=== PATIENT | male | born 1970 | race Asian ===

== ENCOUNTER 2019-03-21 18:30 | Inpatient (IN) | payer OTHER, BC ==
[~2019-03-21] VITALS: Ht 160 cm; Wt 63.5 kg
[2019-03-21 18:37] VITALS: BP_SYST 146
[2019-03-21] MEDS ORDERED: NS 500 ML IV ONE (19:15)
[2019-03-21] MEDS ORDERED: NACL 0.9% 1,000 ML IV ONE ×2 (19:15→21:53)
[2019-03-21] MEDS ORDERED: VANCOMYCIN HCL 1,000 MG in NS 250 ML IV ONE (19:15)
[2019-03-21] MEDS ORDERED: NS 250 ML IV ONE (19:15)
[2019-03-21] MEDS ORDERED: CEFEPIME 2 GM in D5W 100 ML IV ONE (19:15)
[2019-03-21] MEDS ORDERED: LORazepam 2 MG/ML VIAL IVP ONE (19:30)
[2019-03-21] MEDS: MIDAZOLAM HCL 5 MG/5 ML VIAL IM ONE ×2 (19:30→19:35)
[2019-03-21 20:35] LABS: HEMOGLOBIN 13.7 g/dL (14.0-18.0); MEAN CORPUSCULAR HEMOGLOBIN 33 pg (27-31); MEAN CORPUSCULAR HGB CONC 33 % (32-36); MEAN CORPUSCULAR VOLUME 102 fL (79.0-98.0); PLATELET COUNT (AUTO) 115 K/uL (130-430); RED BLOOD CELL COUNT(AUTO) 4.14 MIL/uL (4.2-6.2); RED CELL DISTRIBUTION WIDTH 12.5 % (9.0-15.0); WHITE BLOOD COUNT (AUTO) 11.9 K/uL (4.8-10.8)
[2019-03-21 20:45] LABS: CALCIUM 8.7 mg/dL (8.4-11.0); CREATININE 0.88 mg/dL (0.55-1.30); POTASSIUM 4.1 mmol/L (3.5-5.1)
[2019-03-21 20:51] LABS: ALBUMIN 3.1 g/dL (3.4-4.8); TOTAL BILIRUBIN 0.7 mg/dL (0.0-1.0)
[2019-03-21 21:30] LABS: INR 1.1 (0.80-1.20); PROTHROMBIN TIME 10.6 SECS (9.5-12.5)
[2019-03-21 21:38] LABS: BAND % (MANUAL) 42 % (0-6); LYMPHOCYTES % (MANUAL) 8 % (20-46); MONOCYTES % (MANUAL) 12 % (0-11)
[2019-03-21 21:39] LABS: BASOPHILS % (MANUAL) 0 % (0-2); EOSINOPHILS % (MANUAL) 0 % (0-7)
[2019-03-21 22:25] LABS: BILIRUBIN,URINE NEGATIVE (NEGATIVE); BLOOD, URINE NEGATIVE (NEGATIVE); CLARITY/URINE CLEAR (CLEAR); COLOR,URINE YELLOW (YELLOW); GLUCOSE,URINE NEGATIVE (NEGATIVE); KETONES,URINE TRACE (NEGATIVE); LEUKOCYTE ESTERASE ,URINE NEGATIVE (NEGATIVE); NITRITE, URINE NEGATIVE (NEGATIVE); PH,URINE 7.5 (5.0-8.0); PROTEIN URINE NEGATIVE (NEGATIVE); UROBILINOGEN,URINE 0.2 (0.2-1.0)
[2019-03-21] MEDS ORDERED: cefOXitin SODIUM 2 GM/VIAL (MEFOXIN) ONE (22:35)
[2019-03-21] MEDS ORDERED: VANCOMYCIN HCL 1000 MG/VIAL IV ONE (22:38)
[2019-03-21] MEDS ORDERED: CEFEPIME 1 GM/VIAL (MAXIPIME) ONE (22:44)
[2019-03-21] MEDS ORDERED: ACET325T53 GT (23:19)
[2019-03-21] MEDS ORDERED: BISA-79 PO (23:19)
[2019-03-21] MEDS ORDERED: FLEETMO RC (23:19)
[2019-03-21] MEDS ORDERED: ACET-2634 GT (23:19)
[2019-03-21] MEDS ORDERED: BISA5TAB10 PR (23:19)
[2019-03-21] MEDS ORDERED: CHLO237L3 TP (23:19)
[2019-03-21] MEDS ORDERED: VALP250S3 GT (23:19)
[2019-03-21] MEDS ORDERED: MOM PO (23:19)
[2019-03-21] MEDS ORDERED: SENN8.6T19 GT (23:19)
[2019-03-21] MEDS ORDERED: LEVE250T2 GT (23:19)
[2019-03-21] MEDS ORDERED: ALBU2.5V7 INH (23:19)
[2019-03-21] MEDS ORDERED: PEDI1TAB28 GT (23:19)
[2019-03-21] MEDS ORDERED: BEN50 GT (23:19)
[2019-03-21] MEDS ORDERED: ASCO500T20 GT (23:19)
[2019-03-21] MEDS ORDERED: ACETAMINOPHEN 650 MG SUPP.RECT RC ONE ×2 (23:45→23:53)
[2019-03-22 00:30] VITALS: BP_SYST 111
[2019-03-22 06:37] VITALS: BP_SYST 111
[2019-03-22 07:59] VITALS: BP_SYST 133
[2019-03-22] MEDS: cefTRIAXone 1 GM in D5W 50 ML IV SCH (08:46)
[2019-03-22] MEDS ORDERED: IPRATROPIUM/ALBUTEROL SULFATE 3 ML AMPUL.NEB (DUONEB) INH ONE (09:30)
[2019-03-22] MEDS ORDERED: ACETAMINOPHEN 325 MG TABLET PO PRN (09:30)
[2019-03-22] MEDS ORDERED: LevETIRAcetam 500 MG/5 ML UDC ORAL LIQUID GT ONE (09:45)
[2019-03-22 09:52] LABS: BASOPHILS % (AUTO) 0.1 % (0.0-2.0); HEMATOCRIT 35.8 % (36-54); HEMOGLOBIN 11.9 g/dL (14.0-18.0); LYMPHOCYTES # (AUTO) 0.6 K/uL (1.0-5.5); LYMPHOCYTES % (AUTO) 6.4 % (20.5-51.5); MEAN CORPUSCULAR HEMOGLOBIN 34 pg (27-31); MEAN CORPUSCULAR HGB CONC 33 % (32-36); MEAN CORPUSCULAR VOLUME 101 fL (79.0-98.0); MONOCYTES # (AUTO) 1.1 K/uL (0.0-1.0); MONOCYTES % (AUTO) 12.1 % (1.7-9.3); NEUTROPHILS # (AUTO) 7.5 K/uL (1.8-7.7); PLATELET COUNT (AUTO) 93 K/uL (130-430); RED BLOOD CELL COUNT(AUTO) 3.54 MIL/uL (4.2-6.2); RED CELL DISTRIBUTION WIDTH 12.6 % (9.0-15.0); WHITE BLOOD COUNT (AUTO) 9.2 K/uL (4.8-10.8)
[2019-03-22 10:01] LABS: CALCIUM 7.9 mg/dL (8.4-11.0); CREATININE 0.71 mg/dL (0.55-1.30); NEUTROPHILS % (AUTO) 81.4 % (40.0-70.0); POTASSIUM 3.7 mmol/L (3.5-5.1)
[2019-03-22] MEDS: AZITHROMYCIN 500 MG in NS 250 ML IV SCH (10:32)
[2019-03-22] MEDS: ACETAMINOPHEN 325 MG TABLET GT PRN ×2 (10:33→22:53)
[2019-03-22] MEDS: NORMAL SALINE 5 ML DISP.SYRIN IVF SCH ×3 (10:45→22:41)
[2019-03-22 11:08] VITALS: BP_SYST 113
[2019-03-22] MEDS ORDERED: NACL 0.9% 1,000 ML IV SCH (14:15)
[2019-03-22] MEDS: IPRATROPIUM/ALBUTEROL SULFATE 3 ML AMPUL.NEB (DUONEB) INH SCH ×3 (15:00→23:00)
[2019-03-22 15:15] VITALS: BP_SYST 99
[2019-03-22] MEDS: VANCOMYCIN HCL 750 MG in NS 250 ML IV SCH ×2 (15:47→22:43)
[2019-03-22] MEDS: LevETIRAcetam 500 MG/5 ML UDC ORAL LIQUID GT SCH ×2 (15:48→22:41)
[2019-03-22 20:00] VITALS: BP_SYST 119
[2019-03-22] MEDS: ONDANSETRON HCL 4 MG/2 ML VIAL IVP PRN (22:43)
[2019-03-23 00:23] VITALS: BP_SYST 156
[2019-03-23] MEDS: ACETAMINOPHEN 650 MG/20.3 ML UDC GT PRN ×2 (03:52→22:27)
[2019-03-23] MEDS: IPRATROPIUM/ALBUTEROL SULFATE 3 ML AMPUL.NEB (DUONEB) INH SCH ×6 (04:07→23:17)
[2019-03-23] MEDS: NORMAL SALINE 5 ML DISP.SYRIN IVF SCH ×3 (06:11→21:53)
[2019-03-23] MEDS: LevETIRAcetam 500 MG/5 ML UDC ORAL LIQUID GT SCH ×2 (06:11→22:22)
[2019-03-23] MEDS: VANCOMYCIN HCL 750 MG in NS 250 ML IV SCH (06:13)
[2019-03-23 07:55] VITALS: BP_SYST 98
[2019-03-23 08:08] LABS: BASOPHILS % (AUTO) 0.3 % (0.0-2.0); HEMATOCRIT 31.1 % (36-54); HEMOGLOBIN 10.3 g/dL (14.0-18.0); LYMPHOCYTES # (AUTO) 1.1 K/uL (1.0-5.5); MEAN CORPUSCULAR HEMOGLOBIN 34 pg (27-31); MEAN CORPUSCULAR HGB CONC 33 % (32-36); MEAN CORPUSCULAR VOLUME 101 fL (79.0-98.0); MONOCYTES # (AUTO) 1.3 K/uL (0.0-1.0); MONOCYTES % (AUTO) 12.5 % (1.7-9.3); NEUTROPHILS # (AUTO) 7.9 K/uL (1.8-7.7); NEUTROPHILS % (AUTO) 76.2 % (40.0-70.0); RED BLOOD CELL COUNT(AUTO) 3.07 MIL/uL (4.2-6.2); RED CELL DISTRIBUTION WIDTH 12.4 % (9.0-15.0); WHITE BLOOD COUNT (AUTO) 10.4 K/uL (4.8-10.8)
[2019-03-23 08:15] LABS: ALBUMIN 2.4 g/dL (3.4-4.8); CALCIUM 7.6 mg/dL (8.4-11.0); CREATININE 0.72 mg/dL (0.55-1.30); POTASSIUM 3.8 mmol/L (3.5-5.1); TOTAL BILIRUBIN 0.5 mg/dL (0.0-1.0)
[2019-03-23 08:35] LABS: PLATELET COUNT (AUTO) 86 K/uL (130-430)
[2019-03-23] MEDS: cefTRIAXone 1 GM in D5W 50 ML IV SCH (09:10)
[2019-03-23] MEDS: AZITHROMYCIN 500 MG in NS 250 ML IV SCH (09:12)
[2019-03-23] MEDS: ONDANSETRON HCL 4 MG/2 ML VIAL IVP PRN (11:04)
[2019-03-23] MEDS: 0.45% NACL 1,000 ML IV SCH (12:05)
[2019-03-23 12:24] VITALS: BP_SYST 114
[2019-03-23] MEDS ORDERED: COMMUNICATION ORDER XX ONE (15:00)
[2019-03-23 16:40] VITALS: BP_SYST 118
[2019-03-23] MEDS: VANCOMYCIN HCL 1 GM/NS PREMIX 250 ML IV SCH (17:46)
[2019-03-23 20:00] VITALS: BP_SYST 110
[2019-03-23] MEDS: metroNIDAZOLE 500 mg/NS 100 ML IV SCH (21:52)
[2019-03-24] VITALS: BP_SYST 116
[2019-03-24] MEDS: VANCOMYCIN HCL 1 GM/NS PREMIX 250 ML IV SCH ×2 (00:50→08:07)
[2019-03-24] MEDS: ONDANSETRON HCL 4 MG/2 ML VIAL IVP PRN (00:50)
[2019-03-24] MEDS: IPRATROPIUM/ALBUTEROL SULFATE 3 ML AMPUL.NEB (DUONEB) INH SCH ×6 (03:37→22:41)
[2019-03-24] MEDS: NORMAL SALINE 5 ML DISP.SYRIN IVF SCH ×3 (06:11→22:05)
[2019-03-24] MEDS: LevETIRAcetam 500 MG/5 ML UDC ORAL LIQUID GT SCH ×3 (06:11→22:23)
[2019-03-24 07:04] LABS: BASOPHILS % (AUTO) 0.4 % (0.0-2.0); EOSINOPHILS % (AUTO) 0.1 % (0.0-4.0); HEMATOCRIT 34.4 % (36-54); HEMOGLOBIN 11.4 g/dL (14.0-18.0); LYMPHOCYTES # (AUTO) 0.7 K/uL (1.0-5.5); LYMPHOCYTES % (AUTO) 13.2 % (20.5-51.5); MEAN CORPUSCULAR HEMOGLOBIN 33 pg (27-31); MEAN CORPUSCULAR HGB CONC 33 % (32-36); MEAN CORPUSCULAR VOLUME 101 fL (79.0-98.0); MONOCYTES # (AUTO) 0.8 K/uL (0.0-1.0); MONOCYTES % (AUTO) 14.7 % (1.7-9.3); NEUTROPHILS # (AUTO) 3.8 K/uL (1.8-7.7); NEUTROPHILS % (AUTO) 71.6 % (40.0-70.0); PLATELET COUNT (AUTO) 93 K/uL (130-430); RED BLOOD CELL COUNT(AUTO) 3.41 MIL/uL (4.2-6.2); WHITE BLOOD COUNT (AUTO) 5.3 K/uL (4.8-10.8)
[2019-03-24 08:00] VITALS: BP_SYST 135
[2019-03-24] MEDS: cefTRIAXone 1 GM in D5W 50 ML IV SCH (08:06)
[2019-03-24] MEDS: metroNIDAZOLE 500 mg/NS 100 ML IV SCH ×2 (08:07→21:49)
[2019-03-24 08:35] LABS: CALCIUM 7.6 mg/dL (8.4-11.0); CREATININE 0.56 mg/dL (0.55-1.30); POTASSIUM 3.6 mmol/L (3.5-5.1)
[2019-03-24] MEDS: 0.45% NACL 1,000 ML IV SCH ×2 (10:45→14:22)
[2019-03-24 11:35] VITALS: BP_SYST 129
[2019-03-24 15:03] VITALS: BP_SYST 149
[2019-03-24 20:00] VITALS: BP_SYST 111
[2019-03-24] MEDS ORDERED: levETIRAcetam 500 MG TABLET ONE (22:35)
[2019-03-24] MEDS: ACETAMINOPHEN 650 MG/20.3 ML UDC GT PRN (23:24)
[2019-03-25 00:29] VITALS: BP_SYST 115
[2019-03-25] MEDS ORDERED: LORazepam 2 MG/ML VIAL IVP PRN (00:50)
[2019-03-25] MEDS: IPRATROPIUM/ALBUTEROL SULFATE 3 ML AMPUL.NEB (DUONEB) INH SCH ×5 (02:55→19:18)
[2019-03-25] MEDS: NORMAL SALINE 5 ML DISP.SYRIN IVF SCH ×2 (06:11→14:50)
[2019-03-25 06:54] LABS: BASOPHILS % (AUTO) 0.8 % (0.0-2.0); EOSINOPHILS % (AUTO) 0.6 % (0.0-4.0); HEMATOCRIT 29.9 % (36-54); LYMPHOCYTES # (AUTO) 0.7 K/uL (1.0-5.5); MEAN CORPUSCULAR HEMOGLOBIN 34 pg (27-31); MEAN CORPUSCULAR HGB CONC 34 % (32-36); MEAN CORPUSCULAR VOLUME 100 fL (79.0-98.0); MONOCYTES # (AUTO) 0.7 K/uL (0.0-1.0); MONOCYTES % (AUTO) 22.1 % (1.7-9.3); NEUTROPHILS # (AUTO) 1.8 K/uL (1.8-7.7); NEUTROPHILS % (AUTO) 54.5 % (40.0-70.0); RED BLOOD CELL COUNT(AUTO) 2.98 MIL/uL (4.2-6.2)
[2019-03-25] MEDS: LevETIRAcetam 500 MG/5 ML UDC ORAL LIQUID GT SCH ×2 (07:31→14:50)
[2019-03-25 07:45] LABS: ALBUMIN 2.3 g/dL (3.4-4.8); CALCIUM 7.7 mg/dL (8.4-11.0); CREATININE 0.53 mg/dL (0.55-1.30); POTASSIUM 3.3 mmol/L (3.5-5.1); TOTAL BILIRUBIN 0.4 mg/dL (0.0-1.0)
[2019-03-25 08:00] VITALS: BP_SYST 133
[2019-03-25] MEDS: cefTRIAXone 1 GM in D5W 50 ML IV SCH (08:04)
[2019-03-25] MEDS: metroNIDAZOLE 500 mg/NS 100 ML IV SCH (08:04)
[2019-03-25 08:18] LABS: WHITE BLOOD COUNT (AUTO) 3.3 K/uL (4.8-10.8)
[2019-03-25] MEDS ORDERED: POTASSIUM CHLORIDE 20 MEQ/PKT PACKET GT ONE (09:45)
[2019-03-25] MEDS ORDERED: D5W 1,000 ML IV PRN (09:51)
[2019-03-25] MEDS ORDERED: DEXTROSE 50% JECT 50 ML DISP.SYRIN IVP PRN (10:00)
[2019-03-25] MEDS ORDERED: INSULIN REGULAR, HUMAN 100 UNITS/ML, 10 ML VIAL (humuLIN R) SUBCUT PRN (10:00)
[2019-03-25 11:19] VITALS: BP_SYST 127
[2019-03-25 12:35] LABS: PLATELET COUNT (AUTO) 95 K/uL (130-430)
[2019-03-25] MEDS ORDERED: ROCPM1 IV (14:42)
[2019-03-25] MEDS ORDERED: METR500T GT (14:43)
[2019-03-25] MEDS: 0.45% NACL 1,000 ML IV SCH (14:51)
[2019-03-25 15:02] VITALS: BP_SYST 133
== END 2019-03-25 21:17 | DRG 871 ==
LOC: SED 18:30 → STU 23:42
PROVIDERS: ADMIT Internal Medicine; ATTEND Internal Medicine
PROC: 06HY33Z Insertion of Infusion Device into Lower Vein, Percutaneous Approach (ICD-10-PCS; principal; 2019-03-21)
PROC: B54BZZA Ultrasonography of Right Lower Extremity Veins, Guidance (ICD-10-PCS; 2019-03-21)
DX: A41.9 Sepsis, unspecified organism (principal); J69.0 Pneumonitis due to inhalation of food and vomit; J96.10 Chronic respiratory failure, unspecified whether with hypoxia or hypercapnia; E87.2 Acidosis; G93.1 Anoxic brain damage, not elsewhere classified; L03.116 Cellulitis of left lower limb; K56.7 Ileus, unspecified; E11.9 Type 2 diabetes mellitus without complications; G40.909 Epilepsy, unspecified, not intractable, without status epilepticus; I10 Essential (primary) hypertension; I25.10 Atherosclerotic heart disease of native coronary artery without angina pectoris; J44.9 Chronic obstructive pulmonary disease, unspecified; R13.10 Dysphagia, unspecified; Z66 Do not resuscitate; R65.20 Severe sepsis without septic shock; Z93.1 Gastrostomy status; Z93.0 Tracheostomy status; Z79.899 Other long term (current) drug therapy
CPT/HCPCS: 36415; 36600; 71045; 73560-TC; 80048; 80053; 80164-TC; 80202-TC; 81003; 82803-TC; 82962; 83605; 84484; 85007; 85025; 85027; 85610-TC; 85730-TC; 87040-TC; 87070-TC; 87081; 87086; 87186-TC; 87205-TC; 93005; 94640; 94760; 96365; 96366; 96368; 99285; G0378; J0456; J0692; J0694; J0696; J1815; J2060; J2250; J2405; J3370; J3490; J7030; J7050; J7060; J7620

== ENCOUNTER 2019-09-28 21:41 | Inpatient (IN) | payer OTHER, BC, SELFPAY ==
[~2019-09-28] VITALS: Ht 167.6 cm; Wt 72.6 kg
[~2019-09-28 21:41] MED LIST: ACET-2634 GT; ACET325T53 GT; ALBU2.5V7 INH; ASCO500T20 GT; BEN50 GT; BISA-79 PO; BISA5TAB10 PR; CHLO237L3 TP; FLEETMO RC; LEVE250T2 GT; METR500T GT; MOM PO; PEDI1TAB28 GT; ROCPM1 IV; SENN8.6T19 GT; VALP250S3 GT
[2019-09-28 21:50] VITALS: BP_SYST 110
[2019-09-28] MEDS ORDERED: ACETAMINOPHEN 650 MG SUPP.RECT RC ONE (22:30)
[2019-09-28] MEDS ORDERED: NACL 0.9% 1,000 ML IV ONE (22:30)
[2019-09-28 22:46] LABS: BILIRUBIN,URINE NEGATIVE (NEGATIVE); BLOOD, URINE NEGATIVE (NEGATIVE); COLOR,URINE YELLOW (YELLOW); GLUCOSE,URINE NEGATIVE (NEGATIVE); KETONES,URINE NEGATIVE (NEGATIVE); LEUKOCYTE ESTERASE ,URINE NEGATIVE (NEGATIVE); NITRITE, URINE NEGATIVE (NEGATIVE); PROTEIN URINE NEGATIVE (NEGATIVE)
[2019-09-28 22:50] LABS: CLARITY/URINE CLOUDY (CLEAR)
[2019-09-28 23:00] LABS: BASOPHILS % (AUTO) 0.4 % (0.0-2.0); EOSINOPHILS # (AUTO) 0.1 K/uL (0.0-0.4); EOSINOPHILS % (AUTO) 1.9 % (0.0-4.0); HEMATOCRIT 38.5 % (36-54); LYMPHOCYTES # (AUTO) 1.6 K/uL (1.0-5.5); LYMPHOCYTES % (AUTO) 25.7 % (20.5-51.5); MEAN CORPUSCULAR HEMOGLOBIN 33 pg (27-31); MEAN CORPUSCULAR HGB CONC 34 % (32-36); MEAN CORPUSCULAR VOLUME 96 fL (79.0-98.0); MONOCYTES % (AUTO) 16.3 % (1.7-9.3); NEUTROPHILS # (AUTO) 3.5 K/uL (1.8-7.7); NEUTROPHILS % (AUTO) 55.7 % (40.0-70.0); PLATELET COUNT (AUTO) 146 K/uL (130-430); RED CELL DISTRIBUTION WIDTH 13.2 % (9.0-15.0); WHITE BLOOD COUNT (AUTO) 6.3 K/uL (4.8-10.8)
[2019-09-28 23:11] LABS: CALCIUM 8.4 mg/dL (8.4-11.0); CREATININE 0.5 mg/dL (0.55-1.30); POTASSIUM 3.5 mmol/L (3.5-5.1)
[2019-09-28 23:21] LABS: ALBUMIN 2.7 g/dL (3.4-4.8); TOTAL BILIRUBIN 0.4 mg/dL (0.0-1.0)
[2019-09-28] MEDS ORDERED: AZITHROMYCIN 500 MG in NS 250 ML IV ONE (23:45)
[2019-09-28] MEDS ORDERED: cefTRIAXone 1 GM IVPB PREMIX 50 ML IV ONE (23:45)
[2019-09-29] MEDS: D5/0.45 NS 1,000 ML IV SCH ×2 (01:00→20:15)
[2019-09-29 01:19] VITALS: BP_SYST 126
[2019-09-29 01:24] VITALS: BP_SYST 126
[2019-09-29] MEDS ORDERED: cefTRIAXone 1 GM IVPB PREMIX 50 ML IV ONE (01:43)
[2019-09-29] MEDS ORDERED: AZITHROMYCIN 500 MG/VIAL (ZITHROMAX) IV ONE (01:43)
[2019-09-29 08:00] VITALS: BP_SYST 141
[2019-09-29] MEDS ORDERED: IPRATROPIUM/ALBUTEROL SULFATE 3 ML AMPUL.NEB (DUONEB) INH PRN (08:45)
[2019-09-29] MEDS: IPRATROPIUM/ALBUTEROL SULFATE 3 ML AMPUL.NEB (DUONEB) INH SCH ×3 (08:45→19:31)
[2019-09-29] MEDS: HEPARIN SODIUM,PORCINE 5000 UNITS/ML VIAL SUBCUT SCH ×2 (09:00→21:00)
[2019-09-29] MEDS ORDERED: BISACODYL 5 MG TABLET.DR (DULCOLAX) GT SCH (09:30)
[2019-09-29] MEDS ORDERED: MILK OF MAGNESIA 30 ML UDC PO PRN (09:30)
[2019-09-29] MEDS ORDERED: HIBICLENS TP PRN (09:30)
[2019-09-29] MEDS ORDERED: MINERAL OIL 133 ML ENEMA RC PRN (09:30)
[2019-09-29] MEDS: VALPROIC ACID ORAL SYRUP 250 MG/5 ML UDC GT SCH (09:30)
[2019-09-29] MEDS ORDERED: SENNOSIDES 8.6 MG TABLET GT PRN (09:30)
[2019-09-29] MEDS ORDERED: ASCORBIC ACID 500 MG TABLET GT ONE (11:00)
[2019-09-29] MEDS ORDERED: levETIRAcetam 500 MG TABLET GT ONE (11:15)
[2019-09-29] MEDS ORDERED: VALPROIC ACID ORAL SYRUP 250 MG/5 ML UDC GT ONE (11:15)
[2019-09-29] MEDS ORDERED: BISACODYL 5 MG TABLET.DR (DULCOLAX) PO ONE (11:59)
[2019-09-29 12:00] VITALS: BP_SYST 111
[2019-09-29] MEDS ORDERED: DIPHENHYDRAMINE HCL 12.5 MG/5 ML UDC PO PRN (12:45)
[2019-09-29] MEDS: levETIRAcetam 500 MG TABLET GT SCH ×2 (14:00→22:00)
[2019-09-29] MEDS ORDERED: ACETAMINOPHEN 325 MG TABLET PO PRN (14:30)
[2019-09-29 16:00] VITALS: BP_SYST 130
[2019-09-29] MEDS: PANTOPRAZOLE SODIUM 40 MG/VIAL (PROTONIX) IVP SCH (19:15)
[2019-09-29] MEDS ORDERED: MENTHOL/ZINC OXIDE 113 GM OINT. TP PRN (19:30)
[2019-09-29 20:00] VITALS: BP_SYST 132
[2019-09-29] MEDS: cefTRIAXone 1 GM IVPB PREMIX 50 ML IV SCH (21:00)
[2019-09-29] MEDS: AZITHROMYCIN 500 MG in NS 250 ML IV SCH (21:00)
[2019-09-29] MEDS: NYSTATIN 15 GM TOPICAL POWDER TP SCH (21:30)
[2019-09-30] VITALS: BP_SYST 129
[2019-09-30] MEDS: IPRATROPIUM/ALBUTEROL SULFATE 3 ML AMPUL.NEB (DUONEB) INH SCH ×4 (00:37→19:00)
[2019-09-30] MEDS ORDERED: ACETAMINOPHEN 650 MG/20.3 ML UDC GT PRN (01:00)
[2019-09-30] MEDS: levETIRAcetam 500 MG TABLET GT SCH ×3 (06:00→22:15)
[2019-09-30] MEDS: cefTRIAXone 1 GM IVPB PREMIX 50 ML IV SCH (07:47)
[2019-09-30 07:52] VITALS: BP_SYST 154
[2019-09-30 08:25] LABS: BASOPHILS % (AUTO) 0.7 % (0.0-2.0); EOSINOPHILS # (AUTO) 0.2 K/uL (0.0-0.4); EOSINOPHILS % (AUTO) 3.6 % (0.0-4.0); HEMATOCRIT 37.5 % (36-54); HEMOGLOBIN 12.5 g/dL (14.0-18.0); LYMPHOCYTES # (AUTO) 1.3 K/uL (1.0-5.5); LYMPHOCYTES % (AUTO) 27.7 % (20.5-51.5); MEAN CORPUSCULAR HEMOGLOBIN 32 pg (27-31); MEAN CORPUSCULAR HGB CONC 33 % (32-36); MEAN CORPUSCULAR VOLUME 96 fL (79.0-98.0); MONOCYTES # (AUTO) 0.6 K/uL (0.0-1.0); MONOCYTES % (AUTO) 13.5 % (1.7-9.3); NEUTROPHILS # (AUTO) 2.6 K/uL (1.8-7.7); NEUTROPHILS % (AUTO) 54.5 % (40.0-70.0); PLATELET COUNT (AUTO) 133 K/uL (130-430); RED BLOOD CELL COUNT(AUTO) 3.92 MIL/uL (4.2-6.2); RED CELL DISTRIBUTION WIDTH 12.8 % (9.0-15.0); WHITE BLOOD COUNT (AUTO) 4.8 K/uL (4.8-10.8)
[2019-09-30 08:30] LABS: ALBUMIN 2.9 g/dL (3.4-4.8); CALCIUM 9.1 mg/dL (8.4-11.0); CREATININE 0.61 mg/dL (0.55-1.30); PHOSPHORUS 4.1 mg/dL (2.7-4.5); POTASSIUM 3.7 mmol/L (3.5-5.1); TOTAL BILIRUBIN 0.5 mg/dL (0.0-1.0)
[2019-09-30] MEDS: BISACODYL 5 MG TABLET.DR (DULCOLAX) PO SCH (08:53)
[2019-09-30] MEDS: ASCORBIC ACID 500 MG TABLET GT SCH (08:56)
[2019-09-30] MEDS: PANTOPRAZOLE SODIUM 40 MG/VIAL (PROTONIX) IVP SCH (08:56)
[2019-09-30] MEDS: VALPROIC ACID ORAL SYRUP 250 MG/5 ML UDC GT SCH (08:56)
[2019-09-30] MEDS: AZITHROMYCIN 500 MG in NS 250 ML IV SCH (09:00)
[2019-09-30] MEDS: HEPARIN SODIUM,PORCINE 5000 UNITS/ML VIAL SUBCUT SCH ×2 (09:53→21:00)
[2019-09-30 10:57] VITALS: BP_SYST 119
[2019-09-30] MEDS: NYSTATIN 15 GM TOPICAL POWDER TP SCH ×2 (11:02→22:15)
[2019-09-30 14:25] VITALS: BP_SYST 110
[2019-09-30] MEDS: LORazepam 2 MG/ML VIAL IVP PRN ×2 (14:26→22:35)
[2019-09-30 17:19] VITALS: BP_SYST 95
[2019-09-30] MEDS: D5/0.45 NS 1,000 ML IV SCH (17:21)
[2019-09-30 21:00] VITALS: BP_SYST 158
[2019-10-01 00:10] VITALS: BP_SYST 129
[2019-10-01] MEDS: IPRATROPIUM/ALBUTEROL SULFATE 3 ML AMPUL.NEB (DUONEB) INH SCH ×4 (01:34→20:15)
[2019-10-01] MEDS: levETIRAcetam 500 MG TABLET GT SCH (06:03)
[2019-10-01 08:00] VITALS: BP_SYST 119
[2019-10-01] MEDS: VALPROIC ACID ORAL SYRUP 250 MG/5 ML UDC GT SCH (08:26)
[2019-10-01] MEDS: cefTRIAXone 1 GM IVPB PREMIX 50 ML IV SCH (08:26)
[2019-10-01] MEDS: ASCORBIC ACID 500 MG TABLET GT SCH (08:26)
[2019-10-01] MEDS: NYSTATIN 15 GM TOPICAL POWDER TP SCH ×2 (08:27→22:44)
[2019-10-01] MEDS: BISACODYL 5 MG TABLET.DR (DULCOLAX) PO SCH (08:27)
[2019-10-01] MEDS: PANTOPRAZOLE SODIUM 40 MG/VIAL (PROTONIX) IVP SCH (08:27)
[2019-10-01] MEDS: HEPARIN SODIUM,PORCINE 5000 UNITS/ML VIAL SUBCUT SCH ×2 (08:29→22:42)
[2019-10-01] MEDS: AZITHROMYCIN 500 MG in NS 250 ML IV SCH (09:37)
[2019-10-01 12:00] VITALS: BP_SYST 133
[2019-10-01] MEDS: LevETIRAcetam 500 MG/5 ML UDC ORAL LIQUID GT SCH ×2 (13:39→22:43)
[2019-10-01] MEDS: D5/0.45 NS 1,000 ML IV SCH (13:39)
[2019-10-01] MEDS ORDERED: LevETIRAcetam 500 MG/5 ML UDC ORAL LIQUID GT SCH (14:00)
[2019-10-01 16:30] VITALS: BP_SYST 125
[2019-10-01 20:00] VITALS: BP_SYST 143
[2019-10-01] MEDS: LORazepam 2 MG/ML VIAL IVP PRN (23:16)
[2019-10-01 23:42] VITALS: BP_SYST 140
[2019-10-02] MEDS: IPRATROPIUM/ALBUTEROL SULFATE 3 ML AMPUL.NEB (DUONEB) INH SCH ×4 (01:14→20:17)
[2019-10-02] MEDS: LevETIRAcetam 500 MG/5 ML UDC ORAL LIQUID GT SCH ×3 (05:06→21:52)
[2019-10-02] MEDS: D5/0.45 NS 1,000 ML IV SCH (05:06)
[2019-10-02 08:17] VITALS: BP_SYST 114
[2019-10-02 08:29] LABS: BASOPHILS % (AUTO) 0.3 % (0.0-2.0); EOSINOPHILS # (AUTO) 0.2 K/uL (0.0-0.4); EOSINOPHILS % (AUTO) 3.1 % (0.0-4.0); HEMATOCRIT 36.1 % (36-54); HEMOGLOBIN 12.1 g/dL (14.0-18.0); LYMPHOCYTES # (AUTO) 1.2 K/uL (1.0-5.5); LYMPHOCYTES % (AUTO) 15.5 % (20.5-51.5); MEAN CORPUSCULAR HEMOGLOBIN 32 pg (27-31); MEAN CORPUSCULAR HGB CONC 34 % (32-36); MEAN CORPUSCULAR VOLUME 97 fL (79.0-98.0); MONOCYTES # (AUTO) 0.9 K/uL (0.0-1.0); MONOCYTES % (AUTO) 12.5 % (1.7-9.3); NEUTROPHILS # (AUTO) 5.1 K/uL (1.8-7.7); NEUTROPHILS % (AUTO) 68.6 % (40.0-70.0); PLATELET COUNT (AUTO) 145 K/uL (130-430); RED BLOOD CELL COUNT(AUTO) 3.72 MIL/uL (4.2-6.2); WHITE BLOOD COUNT (AUTO) 7.5 K/uL (4.8-10.8)
[2019-10-02 08:48] LABS: CALCIUM 8.5 mg/dL (8.4-11.0); CREATININE 0.75 mg/dL (0.55-1.30); PHOSPHORUS 3.8 mg/dL (2.7-4.5); POTASSIUM 3.5 mmol/L (3.5-5.1)
[2019-10-02] MEDS: cefTRIAXone 1 GM IVPB PREMIX 50 ML IV SCH (10:35)
[2019-10-02] MEDS: BISACODYL 5 MG TABLET.DR (DULCOLAX) PO SCH (10:36)
[2019-10-02] MEDS: PANTOPRAZOLE SODIUM 40 MG/VIAL (PROTONIX) IVP SCH (10:36)
[2019-10-02] MEDS: ASCORBIC ACID 500 MG TABLET GT SCH (10:36)
[2019-10-02] MEDS: HEPARIN SODIUM,PORCINE 5000 UNITS/ML VIAL SUBCUT SCH ×2 (10:38→21:46)
[2019-10-02] MEDS: AZITHROMYCIN 500 MG in NS 250 ML IV SCH (10:39)
[2019-10-02] MEDS: VALPROIC ACID ORAL SYRUP 250 MG/5 ML UDC GT SCH (11:13)
[2019-10-02] MEDS: NYSTATIN 15 GM TOPICAL POWDER TP SCH ×2 (11:15→21:52)
[2019-10-02 11:46] VITALS: BP_SYST 114
[2019-10-02 12:00] VITALS: BP_SYST 134
[2019-10-02 17:00] VITALS: BP_SYST 104
[2019-10-02 20:00] VITALS: BP_SYST 103
[2019-10-02] MEDS: LORazepam 2 MG/ML VIAL IVP PRN (21:45)
[2019-10-03 00:09] VITALS: BP_SYST 113
[2019-10-03] MEDS: IPRATROPIUM/ALBUTEROL SULFATE 3 ML AMPUL.NEB (DUONEB) INH SCH ×4 (04:59→19:59)
[2019-10-03] MEDS: LevETIRAcetam 500 MG/5 ML UDC ORAL LIQUID GT SCH ×3 (05:19→22:03)
[2019-10-03] MEDS: D5/0.45 NS 1,000 ML IV SCH (05:19)
[2019-10-03 08:52] VITALS: BP_SYST 85
[2019-10-03] MEDS: VALPROIC ACID ORAL SYRUP 250 MG/5 ML UDC GT SCH (09:34)
[2019-10-03] MEDS: PANTOPRAZOLE SODIUM 40 MG/VIAL (PROTONIX) IVP SCH (09:35)
[2019-10-03] MEDS: ASCORBIC ACID 500 MG TABLET GT SCH (09:35)
[2019-10-03] MEDS: BISACODYL 5 MG TABLET.DR (DULCOLAX) PO SCH (09:35)
[2019-10-03] MEDS: cefTRIAXone 1 GM IVPB PREMIX 50 ML IV SCH (09:36)
[2019-10-03] MEDS: AZITHROMYCIN 500 MG in NS 250 ML IV SCH (09:38)
[2019-10-03] MEDS: HEPARIN SODIUM,PORCINE 5000 UNITS/ML VIAL SUBCUT SCH ×2 (09:39→22:04)
[2019-10-03] MEDS: NYSTATIN 15 GM TOPICAL POWDER TP SCH ×2 (11:40→22:03)
[2019-10-03 12:14] VITALS: BP_SYST 126
[2019-10-03 15:07] VITALS: BP_SYST 85
[2019-10-03 16:18] VITALS: BP_SYST 103
[2019-10-03 20:00] VITALS: BP_SYST 103
[2019-10-03] MEDS: LORazepam 2 MG/ML VIAL IVP PRN (20:06)
[2019-10-04] MEDS: IPRATROPIUM/ALBUTEROL SULFATE 3 ML AMPUL.NEB (DUONEB) INH SCH ×3 (01:37→16:28)
[2019-10-04 01:58] VITALS: BP_SYST 130
[2019-10-04] MEDS: D5/0.45 NS 1,000 ML IV SCH (04:20)
[2019-10-04] MEDS: LORazepam 2 MG/ML VIAL IVP PRN ×2 (04:21→11:02)
[2019-10-04] MEDS: LevETIRAcetam 500 MG/5 ML UDC ORAL LIQUID GT SCH ×2 (05:26→13:47)
[2019-10-04 07:54] LABS: CALCIUM 8.9 mg/dL (8.4-11.0); CREATININE 0.57 mg/dL (0.55-1.30); POTASSIUM 3.3 mmol/L (3.5-5.1)
[2019-10-04 08:00] VITALS: BP_SYST 115
[2019-10-04 08:04] LABS: BASOPHILS % (AUTO) 0.9 % (0.0-2.0); EOSINOPHILS # (AUTO) 0.2 K/uL (0.0-0.4); EOSINOPHILS % (AUTO) 7.5 % (0.0-4.0); HEMATOCRIT 37.1 % (36-54); HEMOGLOBIN 12.1 g/dL (14.0-18.0); LYMPHOCYTES # (AUTO) 1.2 K/uL (1.0-5.5); LYMPHOCYTES % (AUTO) 37.4 % (20.5-51.5); MEAN CORPUSCULAR HEMOGLOBIN 32 pg (27-31); MEAN CORPUSCULAR HGB CONC 33 % (32-36); MEAN CORPUSCULAR VOLUME 97 fL (79.0-98.0); MONOCYTES # (AUTO) 0.5 K/uL (0.0-1.0); MONOCYTES % (AUTO) 15.8 % (1.7-9.3); NEUTROPHILS # (AUTO) 1.3 K/uL (1.8-7.7); NEUTROPHILS % (AUTO) 38.4 % (40.0-70.0); PLATELET COUNT (AUTO) 165 K/uL (130-430); RED BLOOD CELL COUNT(AUTO) 3.83 MIL/uL (4.2-6.2); RED CELL DISTRIBUTION WIDTH 13.1 % (9.0-15.0); WHITE BLOOD COUNT (AUTO) 3.3 K/uL (4.8-10.8)
[2019-10-04] MEDS: VALPROIC ACID ORAL SYRUP 250 MG/5 ML UDC GT SCH (09:17)
[2019-10-04] MEDS: PANTOPRAZOLE SODIUM 40 MG/VIAL (PROTONIX) IVP SCH (09:17)
[2019-10-04] MEDS: cefTRIAXone 1 GM IVPB PREMIX 50 ML IV SCH (09:17)
[2019-10-04] MEDS: HEPARIN SODIUM,PORCINE 5000 UNITS/ML VIAL SUBCUT SCH (09:18)
[2019-10-04] MEDS: BISACODYL 5 MG TABLET.DR (DULCOLAX) PO SCH (09:18)
[2019-10-04] MEDS: ASCORBIC ACID 500 MG TABLET GT SCH (09:18)
[2019-10-04] MEDS: NYSTATIN 15 GM TOPICAL POWDER TP SCH (09:19)
[2019-10-04 11:28] VITALS: BP_SYST 105
[2019-10-04] MEDS ORDERED: POTASSIUM CHLORIDE 20 MEQ TAB.PRT.SR GT ONE (12:45)
[2019-10-04 15:27] VITALS: BP_SYST 100
[2019-10-04 17:52] VITALS: BP_SYST 116
== END 2019-10-04 19:40 | DRG 207 ==
LOC: SED 21:41 → STU 09-29 00:02
PROVIDERS: ADMIT Internal Medicine; ATTEND Internal Medicine
PROC: 5A1955Z Respiratory Ventilation, Greater than 96 Consecutive Hours (ICD-10-PCS; principal; 2019-09-28)
DX: J18.9 Pneumonia, unspecified organism (principal); G82.50 Quadriplegia, unspecified; J96.10 Chronic respiratory failure, unspecified whether with hypoxia or hypercapnia; Z99.11 Dependence on respirator [ventilator] status; I25.10 Atherosclerotic heart disease of native coronary artery without angina pectoris; J44.9 Chronic obstructive pulmonary disease, unspecified; E11.9 Type 2 diabetes mellitus without complications; S06.9X0A Unspecified intracranial injury without loss of consciousness, initial encounter; G40.909 Epilepsy, unspecified, not intractable, without status epilepticus; W18.30XA Fall on same level, unspecified, initial encounter; I10 Essential (primary) hypertension; Z20.828 Contact with and (suspected) exposure to other viral communicable diseases; Z86.73 Personal history of transient ischemic attack (TIA), and cerebral infarction without residual deficits; Z74.01 Bed confinement status; Z93.1 Gastrostomy status; Z86.69 Personal history of other diseases of the nervous system and sense organs; Z93.0 Tracheostomy status; Y93.89 Activity, other specified; Y92.89 Other specified places as the place of occurrence of the external cause; Y99.8 Other external cause status; Z78.9 Other specified health status
CPT/HCPCS: 36415; 36600; 71045; 80048; 80053; 81003; 82803-TC; 83605; 83735-TC; 83880; 84100-TC; 84484; 85025; 85610-TC; 85730-TC; 86710; 87040-TC; 87081; 87086; 93005; 94003; 94640; 94760; 96360; 99285; C9113; J0456; J0696; J1644; J2060; J7030; J7050; U0003-CS